=== PATIENT | male | born 1985 | race Caucasian/White ===

== ENCOUNTER → 2023-12-12 09:02 | Outpatient (REF) | payer BC, SELFPAY | LOC: RCS 09:02 | PROVIDERS: ATTENDING PHYSICIAN Physician Assistant | DX: Z13.6 Encounter for screening for cardiovascular disorders (principal); Z82.49 Family history of ischemic heart disease and other diseases of the circulatory system; R06.2 Wheezing | CPT/HCPCS: 93017 ==

== ENCOUNTER → 2023-12-30 15:53 | Outpatient (REF) | payer BC, SELFPAY | LOC: RCS 15:53 | PROVIDERS: ATTENDING PHYSICIAN Physician Assistant | DX: R06.02 Shortness of breath (principal); Z82.49 Family history of ischemic heart disease and other diseases of the circulatory system | CPT/HCPCS: 93306 ==